=== PATIENT | female | born 1995 | race Caucasian/White ===

== ENCOUNTER 2024-06-28 10:35 | Day surgery (SDC) | payer OTHER, SELFPAY ==
[2024-06-27 09:25] VITALS: BMI 32.5
[2024-06-27 11:10] LABS: HCG Qualitative,Urine Negative
[2024-06-27 11:10] LABS: Basophils % (Auto) 0 % (0-2.5); Eosinophils # (Auto) 0.2 Thou/mm3 (0.0-0.5); Eosinophils % (Auto) 2 % (0-10); Hematocrit 37.9 % (36.0-46.0); Hemoglobin 12.8 g/dL (12.0-16.0); Immature Granulocytes % (Auto) 0 % (0-0); Immature Granulocytes Auto 0.03 Thou/mm3 (0.00-0.00); Lymphocytes % (Auto) 31 % (10-50); Mean Corpuscular HGB Conc 33.8 g/dl (31.0-37.0); Mean Corpuscular Hemoglobin 29.2 pg (25.0-35.0); Mean Corpuscular Volume 86 fL (80-100); Monocytes # (Auto) 0.6 Thou/mm3 (0.0-0.8); Monocytes % (Auto) 6 % (0-12); Neutrophils # (Auto) 5.7 Thou/mm3 (1.8-7.7); Neutrophils % (Auto) 60 % (37-80); Nucleated Red Blood Cell % 0 /100 WBC (0); Platelet Count 398 Thou/mm3 (140-440); RDW Standard Deviation 40.1 fL (36.4-46.3); Red Blood Count 4.39 Miln/mm3 (4.00-5.20); White Blood Count 9.5 Thou/mm3 (3.6-11.0)
[2024-06-27 11:18] LABS: INR 0.9 (0.9-1.3); Partial Thromboplastin Time 27.3 Seconds (22.0-36.0); Prothrombin Time 10.4 Seconds (9.0-12.2)
[2024-06-27 11:21] LABS: Alanine Aminotransferase 15 U/L (10-49); Albumin, Serum 5.5 gm/dL (3.5-5.0); Albumin/Globulin Ratio 2.2 (1.2-2.2); Alkaline Phosphatase 131 U/L (46-116); Anion Gap 9 (7-16); Aspartate Amino Transferase 18 U/L (0-34); BUN/Creatinine Ratio 17 Ratio (12-20); Bilirubin,Total 0.4 mg/dL (0.3-1.2); Blood Urea Nitrogen 12 mg/dL (9-23); Calcium 9.9 mg/dL (8.3-10.6); Calcium (Corrected) 9.9 mg/dL (8.5-10.1); Carbon Dioxide 25.7 mMol/L (20.0-31.0); Chloride 101 mMol/L (98-107); Creatinine (Component) 0.7 mg/dL (0.6-1.3); Estimated Creatinine Clearance 99.7 mL/min (>60); Globulin 2.5 gm/dL (2.3-3.5); Glucose 98 mg/dL (74-106); Osmolality,Calculated 271 (275-295); Potassium 3.8 mMol/L (3.4-5.1); Sodium 136 mMol/L (136-145); eGFR > 60 See Note
[2024-06-28] VITALS (7 sets, daily range): BP systolic 108–119; BP diastolic 55–74; PULSE 73–111; RESP 12–22; TEMP 36.5–36.8; O2SAT 96–99; BMI 32.4
[2024-06-28] MEDS: RINGERS LACTATED 1000 ML 1,000 ML 20 ML IV (11:18)
--- NOTE | 2024-06-28 12:59 | PD.SUROPNT ---
Date of Procedure 06/28/24 Pre Op Diagnosis Soft tissue mass anterior abdominal wall Post Op Diagnosis Same, lipoma Procedure Excision of the soft tissue mass anterior abdominal wall on the right side Findings Patient was found to have poorly circumscribed fatty tissue over the lower abdomen below the umbilicus on the right side over the flank. Procedure Description After the patient was brought to the operating room she was given LMA anesthesia. Lower abdomen was prepped with ChloraPrep solution and draped in a sterile manner. Timeout was performed and I injected half percent Marcaine with epinephrine over the right flank in the area of the McBurney incision for about 5 cm. Then I dissected the subcutaneous tissue and found out the lipoma which was globular but not well-circumscribed. I removed most of these lipomas by dissecting out from the subcutaneous tissue till the fascia was reached. This measured about 6 cm in diameter. Then the remaining fatty tissue was closed with 3-0 chromic sutures in 2 layers. Then injected some more local anesthesia and the skin was closed with 4-0 Monocryl. Dressing was applied with Adaptic and patient tolerated procedure. Anesthesia other (General LMA) Pathology / specimen Other Estimated Blood Loss 20 Surgeon Mariela Christian MD Surgical Staff Operation Date: 06/28/24 13:30 Case Staff Anesthesiologist: Alfonso Love
--- NOTE | 2024-06-28 13:00 | SUR.PHASEI ---
pt arrived to PACU via gurney drowsy but arouses to verbal commands, breathing unlabored, dressing to lower right abdomen clean, dry, and intact, report Christian GOMEZ and Dr Love
--- NOTE | 2024-06-28 13:05 | SUR.PHASEI ---
report to Paulo GOMEZ
--- NOTE | 2024-06-28 13:22 | SUR.PHASEI ---
pt able to tolerate oral fluids without difficulty swallowing or nausea/vomiting.
--- NOTE | 2024-06-28 14:00 | SUR.PHASEII ---
pt awake and alert, breathing unlabored on room air. v/s stable. pt dressing to abd cdi. pt able to ambulate to wheelchair with steady gait. d/c instructions given with Talat and mother in room, all questions answered. pt d/c via wheelchair with all belongings.
== END 2024-06-28 14:00 | disposition home or self-care (01) ==
PROVIDERS: Anesthesiology; PCP Physician Assistant; Referring Provider Surgery; Visit Provider Surgery
PROC: (CPT 22902; principal; 2024-06-28 13:15)
DX: D17.5 Benign lipomatous neoplasm of intra-abdominal organs (principal)
CPT/HCPCS: 22902; 36415; 80053; 81025; 85025; 85610; 85730; A4217; A4649; J1885; J2250; J2405; J2704; J3010; J3490; J7120; J0665